=== PATIENT | female | born 1935 | race African-American/Black ===

== ENCOUNTER 2023-02-26 15:01 | Inpatient (IN) | payer BC, OTHER ==
[~2023-02-26] VITALS: Ht 160 cm; Wt 53.7 kg
[2023-02-26] MEDS ORDERED: SODIUM CHLORIDE 0.9% 1,000 ML IV ONE (16:30)
[2023-02-26 16:39] LABS: BASOPHILS % 0.5 % (0.0-2.0); EOSINOPHILS % 0.3 % (0.0-5.0); HEMATOCRIT. 37.7 % (36.0-48.0); HEMOGLOBIN. 12.6 g/dL (12.0-16.0); LYMPHOCYTES % 8.9 % (20.0-50.0); MEAN CORPUSCULAR HEMOGLOBIN 27.5 pg (28.0-32.0); MEAN CORPUSCULAR HGB CONC 33.4 g/dL (31.0-37.0); MEAN CORPUSCULAR VOLUME 82.5 fL (81.0-99.0); MEAN PLATELET VOLUME 8.8 fl (7.4-10.4); MONOCYTES % 2.5 % (2.0-8.0); NEUTROPHILS % 87.8 % (40.0-76.0); PLATELET 257 x1000/uL (130-400); RED BLOOD CELL COUNT 4.57 mill/uL (4.2-5.4); WHITE BLOOD COUNT 14.9 x1000/uL (4.5-11.0)
[2023-02-26 16:47] LABS: CHLORIDE 111 mEq/L (98-107); INDEX HEMOLYSI 1 (1-3); INDEX ICTERIC 1 (1-4); INDEX LIPEMIC 1 (1-3); POTASSIUM 4.4 mEq/L (3.5-5.1); SODIUM 140 mEq/L (136-145)
[2023-02-26 16:56] LABS: ALANINE AMINOTRANSFERASE 21 IU/L (13-61); ALBUMIN 3.3 g/dL (3.4-5.0); ASPARTATE AMINOTRANSFERASE 18 IU/L (15-37); BILIRUBIN TOTAL 0.5 mg/dL (0.1-1.0); CALCIUM 9.6 mg/dL (8.5-10.1); CARBON DIOXIDE 18 mEq/L (21-32); CREATININE 1.4 mg/dL (0.6-1.3); GLUCOSE 117 mg/dL (70-105); PROTEIN TOTAL 7.6 g/dL (6.0-8.3); UREA NITROGEN BLOOD 35 mg/dL (7-21)
[2023-02-26 17:16] LABS: TROPONIN I HIGH SENSITIVITY 359 ng/L (<54)
[2023-02-26 18:55] LABS: NT PRO B-TYPE NATRIURETIC PEP 8359 pg/mL (5-125)
[2023-02-26 18:58] LABS: TROPONIN I HIGH SENSITIVITY 482 ng/L (<54)
[2023-02-27] VITALS: BP 151/77; PULSE 72; RESP 16; TEMP 98.2
[2023-02-27] MEDS ORDERED: METH-371 PO (01:24)
[2023-02-27] MEDS ORDERED: ATEN-42 PO (01:24)
[2023-02-27] MEDS ORDERED: ATEN50TA PO (01:24)
[2023-02-27] MEDS ORDERED: AMLO10TA80 PO (01:24)
[2023-02-27] MEDS ORDERED: CLONIDINE 0.1MG TABLET PO PRN (02:30)
[2023-02-27 04:00] VITALS: BP 166/71; PULSE 75; RESP 18; TEMP 97.4
[2023-02-27] MEDS ORDERED: DILTIAZEM HCL 30MG TABLET PO SCH (06:00)
[2023-02-27 06:36] LABS: BASOPHILS % 0.4 % (0.0-2.0); EOSINOPHILS % 2.4 % (0.0-5.0); HEMATOCRIT. 35.2 % (36.0-48.0); HEMOGLOBIN. 11.7 g/dL (12.0-16.0); LYMPHOCYTES % 16.1 % (20.0-50.0); MEAN CORPUSCULAR HEMOGLOBIN 27.2 pg (28.0-32.0); MEAN CORPUSCULAR HGB CONC 33.3 g/dL (31.0-37.0); MEAN CORPUSCULAR VOLUME 81.9 fL (81.0-99.0); MEAN PLATELET VOLUME 9.1 fl (7.4-10.4); MONOCYTES % 8.8 % (2.0-8.0); NEUTROPHILS % 72.3 % (40.0-76.0); PLATELET 233 x1000/uL (130-400); RED CELL DISTRIBUTION WIDTH 13.9 % (11.6-14.6); WHITE BLOOD COUNT 12.5 x1000/uL (4.5-11.0)
[2023-02-27 07:07] LABS: HEPATITIS B SURFACE ANTIGEN NEGATIVE
[2023-02-27 07:13] LABS: CALCIUM 8.9 mg/dL (8.5-10.1); CARBON DIOXIDE 22 mEq/L (21-32); CHLORIDE 114 mEq/L (98-107); GLUCOSE 97 mg/dL (70-105); INDEX HEMOLYSI 1 (1-3); INDEX ICTERIC 1 (1-4); INDEX LIPEMIC 1 (1-3); POTASSIUM 3.7 mEq/L (3.5-5.1); SODIUM 145 mEq/L (136-145); UREA NITROGEN BLOOD 28 mg/dL (7-21)
[2023-02-27 07:19] LABS: THYROID STIMULATING HORMONE < 0.01 uIU/mL (0.36-3.74)
[2023-02-27 08:00] VITALS: BP 126/60; PULSE 66; RESP 18; TEMP 98.2
[2023-02-27] MEDS ORDERED: ENOXAPARIN 30MG/0.3ML SYR SUBCUT SCH (09:00)
[2023-02-27 09:31] LABS: HEPATITIS C VIR.AB > 11.00 INDEXVAL (0.00-0.80)
[2023-02-27] MEDS ORDERED: METHIMAZOLE 5MG TABLET PO SCH (10:00)
[2023-02-27 12:00] VITALS: BP 124/58; PULSE 64; RESP 18; TEMP 97.6
[2023-02-27 12:00] LABS: INR 1.1; PROTHROMBIN TIME 11.4 sec (9.6-11.0)
[2023-02-27] MEDS: ATENOLOL 50 MG TABLET PO SCH (12:13)
[2023-02-27 12:25] LABS: TROPONIN I HIGH SENSITIVITY 810 ng/L (<54)
[2023-02-27 16:00] VITALS: BP 150/67; PULSE 68; RESP 18; TEMP 97.2
[2023-02-27] MEDS: ENOXAPARIN 60MG/0.6ML SYR SUBCUT SCH (17:58)
[2023-02-27 20:00] VITALS: BP 131/49; PULSE 70; RESP 18; TEMP 97.6
[2023-02-27] MEDS: AMLODIPINE 2.5MG TABLET PO SCH (20:32)
[2023-02-28] VITALS: BP 130/64; PULSE 74; RESP 18; TEMP 97.6
[2023-02-28 04:00] VITALS: BP 130/64; PULSE 71; RESP 18; TEMP 97.6
[2023-02-28] MEDS: ENOXAPARIN 60MG/0.6ML SYR SUBCUT SCH (06:00)
[2023-02-28 06:51] LABS: BASOPHILS % 0.6 % (0.0-2.0); HEMATOCRIT. 35.7 % (36.0-48.0); HEMOGLOBIN. 12.1 g/dL (12.0-16.0); LYMPHOCYTES % 27.4 % (20.0-50.0); MEAN CORPUSCULAR HEMOGLOBIN 27.6 pg (28.0-32.0); MEAN CORPUSCULAR HGB CONC 33.9 g/dL (31.0-37.0); MEAN CORPUSCULAR VOLUME 81.5 fL (81.0-99.0); MEAN PLATELET VOLUME 9.1 fl (7.4-10.4); MONOCYTES % 8.2 % (2.0-8.0); NEUTROPHILS % 58.8 % (40.0-76.0); PLATELET 232 x1000/uL (130-400); RED BLOOD CELL COUNT 4.38 mill/uL (4.2-5.4); RED CELL DISTRIBUTION WIDTH 13.7 % (11.6-14.6); WHITE BLOOD COUNT 9.5 x1000/uL (4.5-11.0)
[2023-02-28 07:20] LABS: POTASSIUM 3.6 mEq/L (3.5-5.1)
[2023-02-28 07:31] LABS: CREATININE 1.1 mg/dL (0.6-1.3)
[2023-02-28 07:54] VITALS: BP 128/62; PULSE 73; RESP 18; TEMP 98.2
[2023-02-28] MEDS: ATENOLOL 50 MG TABLET PO SCH (08:43)
[2023-02-28] MEDS: AMLODIPINE 2.5MG TABLET PO SCH (08:44)
[2023-02-28] MEDS ORDERED: METHIMAZOLE 5MG TABLET PO SCH (09:00)
[2023-02-28 10:40] LABS: CLARITY URINE CLEAR (CLEAR); COLOR URINE YELLOW (YELLOW); GLUCOSE URINE NEGATIVE (NEGATIVE); KETONES URINE NEGATIVE (NEGATIVE); LEUKOCYTE ESTERASE URINE TRACE (NEGATIVE); NITRITE URINE NEGATIVE (NEGATIVE); OCCULT BLOOD URINE NEGATIVE (NEGATIVE); PH URINE 5.5 (4.5-8.0); PROTEIN URINE NEGATIVE (NEGATIVE); SPECIFIC GRAVITY URINE 1.014 (1.005-1.030); UROBILINOGEN URINE 0.2 E.U./dL (0.2-1.0)
[2023-02-28] MEDS ORDERED: APIXABAN 2.5 MG TABLET PO SCH (11:00)
[2023-02-28 11:50] LABS: SQUAMOUS EPITHELIAL CELL URINE FEW /lpf (RARE/1+); YEAST URINE FEW
[2023-02-28 11:51] LABS: BACTERIA URINE TRACE; RBC URINE NONE SEEN /hpf (0-2)
[2023-02-28 12:00] VITALS: BP 146/65; PULSE 65; RESP 18; TEMP 98
[2023-02-28] MEDS ORDERED: APIX2.5T MT (12:00)
[2023-02-28 12:57] VITALS: BP 146/65; PULSE 65; TEMP 98; O2SAT 100
== END 2023-02-28 15:56 | disposition home or self-care (01) | DRG 280 ==
LOC: ER 15:01 → MICUSO 23:03 → EDBEDREQ 23:24 → EDBEDREQTM 23:24 → 7WST 02-27 01:26
PROVIDERS: ADMIT Internal Medicine; ATTEND Internal Medicine Pulmonary Disease
DX: I21.4 Non-ST elevation (NSTEMI) myocardial infarction (principal); N17.0 Acute kidney failure with tubular necrosis; I48.20 Chronic atrial fibrillation, unspecified; D72.829 Elevated white blood cell count, unspecified; E05.90 Thyrotoxicosis, unspecified without thyrotoxic crisis or storm; I10 Essential (primary) hypertension; B19.20 Unspecified viral hepatitis C without hepatic coma; E03.9 Hypothyroidism, unspecified; I48.91 Unspecified atrial fibrillation; Z88.0 Allergy status to penicillin; Z95.2 Presence of prosthetic heart valve
CPT/HCPCS: 36415; 71045; 71275; 80048; 80053; 80061; 81003; 83735; 83880; 84439; 84443; 84484; 85025; 85379; 86803; 87340; 93005; 93306; 99285; J1650; J7030